=== PATIENT | female | born 1970 | race Caucasian/White ===

== ENCOUNTER 2021-07-26 08:00 | Outpatient (CLI) | payer OTHER ==
[2021-07-26 18:55] LABS: BASOPHILS # (AUTO) 0.1 10^3/uL (0.0-0.1); BASOPHILS % (AUTO) 0.9 %; EOSINOPHILS # (AUTO) 0.2 10^3/uL (0.0-0.7); EOSINOPHILS % (AUTO) 1.2 %; HCT - HEMATOCRIT 37.6 % (37.0-47.0); HGB - HEMOGLOBIN 12.1 g/dL (12.0-16.0); LYMPHOCYTES # (AUTO) 1.9 10^3/uL (1.5-3.5); LYMPHOCYTES % (AUTO) 14.4 %; MEAN CORPUSCULAR HGB CONC 32.2 g/dL (32.0-36.0); MEAN CORPUSCULAR VOLUME 99.5 fL (81.0-99.0); MEAN PLATELET VOLUME 9.7 fL (7.9-10.8); MONOCYTES # (AUTO) 0.9 10^3/uL (0.0-1.0); MONOCYTES % (AUTO) 6.7 %; NEUTROPHILS # (AUTO) 9.9 10^3/uL (1.5-6.6); NEUTROPHILS % (AUTO) 76.2 %; PLT - PLATELET COUNT 724 10^3/uL (130-450); RED BLOOD COUNT 3.78 10^6/uL (4.20-5.40); RED CELL DISTRIBUTION WIDTH 12.6 % (12.0-15.0)
[2021-07-26 19:27] LABS: ALBUMIN 3.9 g/dL (3.2-5.5); ALBUMIN/GLOBULIN RATIO 1.1 (1.0-2.2); BILIRUBIN,TOTAL 0.4 mg/dL (0.2-1.0); CALCIUM 9.3 mg/dL (8.5-10.3); CREATININE 0.9 mg/dL (0.4-1.0); POTASSIUM 3.9 mmol/L (3.5-5.0); TOTAL PROTEIN 7.6 g/dL (6.7-8.2)
[2021-07-26 20:27] LABS: THYROID STIMULATING HORMONE 0.7 uIU/mL (0.34-5.60)
== END 2021-07-26 23:59 | disposition home or self-care (01) ==
LOC: LAB.N 08:00
PROVIDERS: ATTEND Physician Assistant Medical
DX: R53.83 Other fatigue (principal); D51.8 Other vitamin B12 deficiency anemias; D50.9 Iron deficiency anemia, unspecified
CPT/HCPCS: 36415; 80053; 84443; 85025

== ENCOUNTER 2022-03-25 10:05 | Emergency (ER) | payer OTHER ==
[2022-03-25 10:14] VITALS: BP 140/91
--- NOTE | 2022-03-25 10:45 | XRAY Report ---
PROCEDURE: Chest 1 View X-Ray INDICATIONS: SOA TECHNIQUE: One view of the chest was acquired. COMPARISON: None. FINDINGS: Surgical changes and devices: GE junction region and left upper quadrant clips.. Lungs and pleura: No pleural effusions or pneumothorax. Lungs are clear. Mediastinum: Mediastinal contours appear normal. Heart size is normal. Bones and chest wall: No suspicious bony lesions. Overlying soft tissues appear unremarkable. IMPRESSION: No evidence acute pulmonary process. Reviewed by: Reggie Giron MD on 03/25/2022 10:43 AM [facility] Approved by: Reggie Giron MD on 03/25/2022 10:43 AM [facility] Station ID: [id number]
--- NOTE | 2022-03-25 12:40 | ED Physician Documentation ---
History of Present Illness - Stated complaint Stated Complaint: SOA - Chief complaint Chief Complaint: Resp - History obtained from History obtained from: Patient - Additonal information Additional information: The patient comes to the emergency department chief complaint of shortness of breath and cough. She states that she has been sick for about 3 days. No fevers or chills. She has no GI symptoms. She has some nasal congestion but not much productive cough. No other complaints at this time. No specific sick contacts. Review of Systems Ten Systems: 10 systems reviewed and negative Constitutional: reports: Reviewed and negative Eyes: reports: Reviewed and negative Ears: reports: Reviewed and negative Nose: reports: Reviewed and negative Throat: reports: Reviewed and negative Cardiac: reports: Reviewed and negative Respiratory: reports: Dyspnea, Cough GI: reports: Reviewed and negative : reports: Reviewed and negative Skin: reports: Reviewed and negative Musculoskeletal: reports: Reviewed and negative Neurologic: reports: Reviewed and negative Psychiatric: reports: Reviewed and negative Endocrine: reports: Reviewed and negative Immunocompromised: reports: Reviewed and negative PD PAST MEDICAL HISTORY - Past Medical History Past Medical History: Yes Cardiovascular: Other Respiratory: Pneumonia - Past Surgical History Past Surgical History: Yes General: Cholecystectomy, Gastric surgery Ortho: Other - Allergies Allergies/Adverse Reactions: Allergies Allergy/AdvReac Type Severity Reaction Status Date / Time No Known Drug Allergies Allergy Verified 03/25/22 10:14 - Social History Does the pt smoke?: No Smoking Status: Never smoker Does the pt drink ETOH?: No Does the pt have substance abuse?: No - Immunizations Immunizations are current?: Yes PD ED PE NORMAL - Vitals Vital signs reviewed: Yes - General General: Alert and oriented X 3, No acute distress, Well developed/nourished - HEENT HEENT: Atraumatic, PERRL, EOMI, Moist mucous membranes - Neck Neck: Supple, no meningeal sign - Cardiac Cardiac: RRR, No murmur, Strong equal pulses - Respiratory Respiratory: No respiratory distress, Clear bilaterally - Derm Derm: Normal color, Warm and dry, No rash - Extremities Extremities: No deformity - Neuro Neuro: Alert and oriented X 3, 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, Normal speech - Psych Psych: Normal mood, Normal affect Results - Vitals Vitals: Vital Signs - 24 hr 03/25/22 10:10 Temperature 36.7 C Heart Rate 107 H Respiratory 16 Rate Blood Pressure 140/91 H O2 Saturation 98 Oxygen O2 Source Room air - Labs Labs: Laboratory Tests 03/25/22 10:14 SARS-CoV-2 (PCR) DETECTED A - Rads (name of study) Chest x-ray Radiology: Final report received, See rad report (Negative) PD Medical Decision Making - ED course Complexity details: reviewed results, re-evaluated patient, considered differential, d/w patient ED course: I discussed with the patient that she is COVID-positive. Her chest x-ray is negative. We have discussed symptomatic management at home and the usual indications for return. Departure - Departure Disposition: Home, Self Care Clinical Impression: COVID-19 Condition: Stable Instructions: ED Viral Syndrome Comments: Your viral panel is positive for COVID. You should take ibuprofen 600 mg every 6 hours and Tylenol 650 mg every 4 hours, as needed for fever or other discomforts. Please drink plenty of fluids. There is no evidence of pneumonia on your x-ray at this point in time. You should be feeling better and anywhere from the next few days to a week or 2. You may follow-up with your primary doctor as needed. Once you are starting to noticeably feel better, just as with any other virus, you go back to your usual life.
== END 2022-03-25 12:56 | disposition home or self-care (01) ==
LOC: ED 10:05
DX: U07.1 COVID-19 (principal)
CPT/HCPCS: 99282; 99284

== ENCOUNTER 2022-06-20 21:05 | Emergency (ER) | payer OTHER ==
[2022-06-20 21:45] LABS: BASOPHILS # (AUTO) 0.1 10^3/uL (0.0-0.1); BASOPHILS % (AUTO) 0.9 %; EOSINOPHILS # (AUTO) 0.2 10^3/uL (0.0-0.7); EOSINOPHILS % (AUTO) 2.5 %; HCT - HEMATOCRIT 36.8 % (37.0-47.0); HGB - HEMOGLOBIN 11.7 g/dL (12.0-16.0); LYMPHOCYTES # (AUTO) 2.2 10^3/uL (1.5-3.5); LYMPHOCYTES % (AUTO) 27.5 %; MEAN CORPUSCULAR HEMOGLOBIN 30.2 pg (27.0-31.0); MEAN CORPUSCULAR HGB CONC 31.8 g/dL (32.0-36.0); MEAN CORPUSCULAR VOLUME 94.8 fL (81.0-99.0); MEAN PLATELET VOLUME 8.9 fL (7.9-10.8); MONOCYTES # (AUTO) 0.9 10^3/uL (0.0-1.0); MONOCYTES % (AUTO) 11.6 %; NEUTROPHILS # (AUTO) 4.5 10^3/uL (1.5-6.6); NEUTROPHILS % (AUTO) 57.1 %; PLT - PLATELET COUNT 359 10^3/uL (130-450); RED BLOOD COUNT 3.88 10^6/uL (4.20-5.40); RED CELL DISTRIBUTION WIDTH 13.6 % (12.0-15.0)
[2022-06-20 21:46] LABS: BILIRUBIN,URINE NEGATIVE (NEGATIVE); GLUCOSE, URINE (UA) NEGATIVE (NEGATIVE); KETONES,URINE (UA) 15 mg/dL (NEGATIVE); LEUKOCYTE ESTERASE, URINE TRACE (NEGATIVE); NITRITE,URINE NEGATIVE (NEGATIVE); OCCULT BLOOD,URINE TRACE-INTA (NEGATIVE); PROTEIN,URINE NEGATIVE (NEGATIVE); UROBILINOGEN,URINE 0.2 (NORMAL) E.U./dL (NORMAL)
[2022-06-20 21:47] LABS: CLARITY,URINE CLEAR (CLEAR)
[2022-06-20 21:55] LABS: BACTERIA,URINE Rare /HPF (None Seen); RBC,URINE 0-5 /HPF (0-5); SQUAMOUS EPITHELIAL CELL,UR FEW Squamous (<= Few); WBC,URINE 0-3 /HPF (0-5)
[2022-06-20 21:57] LABS: ALBUMIN 4.4 g/dL (3.2-5.5); ALBUMIN/GLOBULIN RATIO 1.3 (1.0-2.2); BILIRUBIN,TOTAL 0.9 mg/dL (0.2-1.0); CALCIUM 9.2 mg/dL (8.5-10.3); CREATININE 0.8 mg/dL (0.4-1.0); POTASSIUM 3.6 mmol/L (3.5-5.0); TOTAL PROTEIN 7.8 g/dL (6.7-8.2)
--- OUTSIDE RECORDS SUMMARY | 2022-06-20 21:57 | EXTERNAL MEDICAL SUMMARY RPT | Continuity of Care Document ---
:1970 Author Organization [facility] Address [address] [place] [address] Phone Care Team Providers Name Role Phone Unavailable Unavailable Unavailable Suhas Ferreira Pa-C Unavailable Unavailable Allergies No information. Encounters No information. Functional Status No information. Immunizations No information. Medications date description facility 2022-06-20 00:00 mupirocin All 2022-06-20 00:00 fluoxetine All 2022-06-20 00:00 bupropion hcl All 2022-06-20 00:00 spironolactone All 2022-06-20 00:00 hydromorphone All 2022-06-20 00:00 hydromorphone All 2022-06-20 00:00 dextroamphetamine-amphetamine All 2022-06-20 00:00 dextroamphetamine-amphetamine All 2022-06-20 00:00 lidocaine All 2022-06-20 00:00 hydrocodone-acetaminophen All 2022-06-20 00:00 hydromorphone All 2022-06-20 00:00 hydromorphone All 2022-06-20 00:00 hydroxyzine hcl All 2022-06-20 00:00 ibuprofen All 2022-06-20 00:00 mupirocin All 2022-06-20 00:00 hydroxyzine hcl All 2022-06-20 00:00 methocarbamol All 2022-06-20 00:00 naproxen All 2022-06-20 00:00 lidocaine All 2022-06-20 00:00 ibuprofen All 2022-06-20 00:00 methocarbamol All 2022-06-20 00:00 naproxen All 2022-06-20 00:00 spironolactone All 2022-06-20 00:00 diclofenac sodium All 2022-06-20 00:00 trazodone All 2022-06-20 00:00 dextroamphetamine-amphetamine All 2022-06-20 00:00 bupropion hcl All 2022-06-20 00:00 mupirocin All 2022-06-20 00:00 fluoxetine All 2022-06-20 00:00 gabapentin All 2022-06-20 00:00 spironolactone All 2022-06-20 00:00 pantoprazole All 2022-06-20 00:00 methocarbamol All 2022-06-20 00:00 spironolactone All 2022-06-20 00:00 gabapentin All 2022-06-20 00:00 pantoprazole All 2022-06-20 00:00 trazodone All 2022-06-20 00:00 dextroamphetamine-amphetamine All 2022-06-20 00:00 pantoprazole All 2022-06-20 00:00 hydroxyzine hcl All 2022-06-20 00:00 trazodone All 2022-06-20 00:00 fluoxetine All 2022-06-20 00:00 bupropion hcl All 2022-06-20 00:00 gabapentin All 2022-06-20 00:00 dextroamphetamine-amphetamine All 2022-06-20 00:00 dextroamphetamine-amphetamine All 2022-06-20 00:00 pantoprazole All 2022-06-20 00:00 pantoprazole All 2022-06-20 00:00 hydromorphone All 2022-06-20 00:00 hydromorphone All 2022-06-20 00:00 ibuprofen All 2022-06-20 00:00 diclofenac sodium All 2022-06-20 00:00 lidocaine All 2022-06-20 00:00 hydrocodone-acetaminophen All 2022-06-20 00:00 ibuprofen All 2022-06-20 00:00 naproxen All 2022-06-20 00:00 naproxen All 2022-06-20 00:00 gabapentin All 2022-06-20 00:00 dextroamphetamine-amphetamine All 2022-06-20 00:00 methocarbamol All 2022-06-20 00:00 hydrocodone-acetaminophen All 2022-06-20 00:00 diclofenac sodium All 2022-06-20 00:00 trazodone All 2022-06-20 00:00 hydrocodone-acetaminophen All 2022-06-20 00:00 dextroamphetamine-amphetamine All 2022-06-20 00:00 fluoxetine All 2022-06-20 00:00 hydromorphone All 2022-06-20 00:00 hydromorphone All 2022-06-20 00:00 mupirocin All 2022-06-20 00:00 diclofenac sodium All 2022-06-20 00:00 lidocaine All 2022-06-20 00:00 bupropion hcl All 2022-06-20 00:00 hydroxyzine hcl All Problems date description facility 2022-06-20 00:00 Left flank pain All 2022-06-20 00:00 Abdominal pain, other specified site; m ultiple sites All 2022-06-20 00:00 Unspecified abdominal pain All Procedures date description facility 2022-06-20 00:00 Visit Code Hold All Results/Labs test date author facility value unit interpret ation Result panel 1 (unknown) (no date) (unknown) All (no value) (units unknown ) (unknown) Result panel 2 (unknown) (no date) (unknown) All (no value) (units unknown ) (unknown) Result panel 3 (unknown) (no date) (unknown) All (no value) (units unknown ) (unknown) Result panel 4 (unknown) (no date) (unknown) All (no value) (units unknown ) (unknown) Result panel 5 (unknown) (no date) (unknown) All (no value) (units unknown ) (unknown) Result panel 6 (unknown) (no date) (unknown) All (no value) (units unknown ) (unknown) Result panel 7 (unknown) (no date) (unknown) All (no value) (units unknown ) (unknown) Result panel 8 (unknown) (no date) (unknown) All (no value) (units unknown ) (unknown) Result panel 9 (unknown) (no date) (unknown) All (no value) (units unknown ) (unknown) Result panel 10 (unknown) (no date) (unknown) All (no value) (units unknown ) (unknown) Result panel 11 (unknown) (no date) (unknown) All (no value) (units unknown ) (unknown) Result panel 12 (unknown) (no date) (unknown) All (no value) (units unknown ) (unknown) Result panel 13 (unknown) (no date) (unknown) All (no value) (units unknown ) (unknown) Social History date description facility 2022-06-20 00:00 Unknown if ever smoked All Vital Signs date measurement value units 2022-06-20 00:00 BMI 26.31 kg/m2 2022-06-20 00:00 BP_diastolic 95 mmHg 2022-06-20 00:00 BP_systolic 142 mmHg 2022-06-20 00:00 heart_rate 103 /min 2022-06-20 00:00 height_metric 160.02 cm 2022-06-20 00:00 height_standard 63 in 2022-06-20 00:00 respiration_rate 18 /min 2022-06-20 00:00 temperature_metric 36.94 C 2022-06-20 00:00 temperature_standard 98.5 F 2022-06-20 00:00 weight_metric 67.13 kg 2022-06-20 00:00 weight_standard 148 lb
[2022-06-20] MEDS ORDERED: SODIUM CHLORIDE 0.9% 1,000 ML IV STA (22:17)
[2022-06-20] MEDS ORDERED: iohexoL-300 100 ML VIAL ONE (22:23)
[2022-06-20 23:26] LABS: HCG UR QUAL NEGATIVE
[2022-06-21] MEDS ORDERED: iohexoL-300 100 ML VIAL IVP ONE (00:03)
--- NOTE | 2022-06-21 00:37 | CT Report ---
PROCEDURE: ABDOMEN/PELVIS W INDICATIONS: abd pain CONTRAST: Omni 300 100ml TECHNIQUE: After the administration of intravenous contrast, 5 mm thick sections acquired from the diaphragms to the symphysis. 5 mm thick coronal and sagittal reformats were acquired. For radiation dose reducti on, the following was used: automated exposure control, adjustment of mA and/or kV according to agapito ent size. COMPARISON: None. FINDINGS: Image quality: Excellent. Lung bases:There is mild dependent atelectasis. There is a partially visualized right lower lobe nod ule measuring up to 0.4 cm with partial internal calcification. Heart: Heart is normal in size. There is a moderate-sized hiatal hernia. ABDOMEN: Liver: No mass lesion. Gallbladder: Within normal limits without calcified gallstones. Biliary ducts: No biliary ductal dilatation. Pancreas: Unremarkable. Spleen: Normal in size. Adrenal Glands: No adrenal nodules. Kidneys and Ureters: No hydronephrosis. Stomach and Bowel: Postsurgical changes are demonstrated along the stomach consistent with prior gas tric bypass. There is a short segment jejunojejunal intussusception of the small bowel in the left mi d abdomen along patient's surgical sutures with mild associated patulous distention of an upstream se gment of small bowel. Small bowel is otherwise nondistended. Appendix is normal. Peritoneum: No abnormal intraperitoneal fluid. No free air. Ventral Wall: No hernia. Abdominal Nodes: No retroperitoneal or mesenteric adenopathy by size criteria. Vessels: Aorta and inferior vena cava are normal in size. PELVIS: Pelvic Organs: Unremarkable. Bladder: Unremarkable. Pelvic Nodes: No enlarged lymph nodes. Miscellaneous: No inguinal hernias. Bones: Visualized osseous structures demonstrate no suspicious lesions. IMPRESSION: 1. Short segment jejunojejunal intussusception within the left abdomen with associated mild upstream patulous distention of a segment small bowel. Small bowel otherwise appears nondistended without defi nite evidence of obstruction. 2. Moderate size hiatal hernia. Reviewed by: Jeff Urena MD on 06/21/2022 12:36 AM PDT Approved by: Jeff Urena MD on 06/21/2022 12:36 AM PDT Station ID: [id number]
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
[2022-06-21 01:46] VITALS: BP 124/77
== END 2022-06-21 01:35 | disposition home or self-care (01) ==
LOC: ED 21:05
DX: K56.1 Intussusception (principal)
CPT/HCPCS: 36415; 74177; 80053; 81001; 81025; 83690; 85025; 87086; 99283; 99284; Q9967; 81003

== ENCOUNTER 2022-10-29 18:03 | Emergency (ER) | payer OTHER ==
[2022-10-29 18:09] VITALS: BP 130/80
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
--- NOTE | 2022-10-29 19:15 | XRAY Report ---
PROCEDURE: Hand 3 View RT INDICATIONS: Trauma TECHNIQUE: 3 views of the hand(s) acquired. COMPARISON: None. FINDINGS: Bones: No fractures or dislocations. No suspicious bony lesions. Soft tissues: No suspicious soft tissue calcifications or masses. IMPRESSION: No acute bony abnormality. If pain persists with conservative management, consider repeat radiographs in 10-14 days or cross-sectional imaging. Reviewed by: Victor M Rogers MD on 10/29/2022 7:14 PM PDT Approved by: Victor M Rogers MD on 10/29/2022 7:14 PM PDT Station ID: [id number]
== END 2022-10-29 19:06 | disposition home or self-care (01) ==
LOC: ED 18:03
DX: S60.221A Contusion of right hand, initial encounter (principal); X58.XXXA Exposure to other specified factors, initial encounter
CPT/HCPCS: 99283

== ENCOUNTER 2022-12-22 10:14 | Emergency (ER) | payer OTHER ==
[2022-12-22 11:30] LABS: BASOPHILS # (AUTO) 0.1 10^3/uL (0.0-0.1); BASOPHILS % (AUTO) 1.2 %; EOSINOPHILS # (AUTO) 0.8 10^3/uL (0.0-0.7); EOSINOPHILS % (AUTO) 10.1 %; HCT - HEMATOCRIT 33.4 % (37.0-47.0); LYMPHOCYTES # (AUTO) 2.6 10^3/uL (1.5-3.5); LYMPHOCYTES % (AUTO) 34.6 %; MEAN CORPUSCULAR HEMOGLOBIN 26.3 pg (27.0-31.0); MEAN CORPUSCULAR HGB CONC 29.9 g/dL (32.0-36.0); MEAN CORPUSCULAR VOLUME 87.9 fL (81.0-99.0); MEAN PLATELET VOLUME 9.1 fL (7.9-10.8); MONOCYTES # (AUTO) 0.8 10^3/uL (0.0-1.0); MONOCYTES % (AUTO) 10.7 %; NEUTROPHILS # (AUTO) 3.2 10^3/uL (1.5-6.6); NEUTROPHILS % (AUTO) 43.1 %; PLT - PLATELET COUNT 374 10^3/uL (130-450); WHITE BLOOD COUNT 7.4 x10^3/uL (4.8-10.8)
[2022-12-22 11:45] LABS: ALBUMIN 4.2 g/dL (3.2-5.5); ALBUMIN/GLOBULIN RATIO 1.5 (1.0-2.2); BILIRUBIN,TOTAL 0.2 mg/dL (0.2-1.0); CALCIUM 9.4 mg/dL (8.5-10.3); CREATININE 0.7 mg/dL (0.6-1.3); POTASSIUM 3.6 mmol/L (3.5-4.5)
[2022-12-22] MEDS ORDERED: HYDROmorphone 1 MG/ML CARPUJECT IVP STA ×2 (12:39→13:49)
--- NOTE | 2022-12-22 12:49 | ED Physician Documentation ---
History of Present Illness - Stated complaint Stated Complaint: LOWER ABD PX, - Chief complaint Chief Complaint: Abd Pain - History obtained from History obtained from: Patient - History of Present Illness Timing: Today Pain level max: 9 Pain level now: 9 - Additonal information Additional information: Patient is a 52-year-old female presents to the emergency department with right lower quadrant abdominal pain. She states that it started while she was fishing this morning, she feels like she may have injured it while she was casting but it gradually worsened, she went home took her usual Vicodin, ibuprofen for her ankylosing spondylitis. She states the pain has continued to increase. No nausea or vomiting. No fevers. No chills. No diarrhea or constipation. She does have a remote history of gastric bypass. The pain is worse with movement, better with rest. She states she believes that she may have had a kidney stone at 1 point but she was not CT scanned. Denies any urinary symptoms currently. Review of Systems Constitutional: denies: Fever, Chills Respiratory: denies: Cough GI: denies: Nausea, Vomiting, Diarrhea : denies: Dysuria, Frequency, Hesitancy, Now EGA Skin: denies: Rash Musculoskeletal: denies: Neck pain, Back pain PD PAST MEDICAL HISTORY - Past Medical History Cardiovascular: Other Respiratory: Pneumonia - Past Surgical History Past Surgical History: Yes General: Cholecystectomy, Gastric surgery Ortho: Other - Present Medications Home Medications: Ambulatory Orders Medication Instructions Recorded Confirmed Dextroamphetamine/Amphetamine 10 mg PO DAILY 12/22/22 12/22/22 [Dextroamp-Amphetamine 5 mg Tab] Oxycodone HCl/Acetaminophen 1 - 2 each PO Q6H PRN #14 tablet 12/22/22 [Percocet 5-325 mg Tablet] MDD 6 tabs buPROPion [Wellbutrin Sr] 100 mg PO BID 12/22/22 12/22/22 traZODone [Desyrel] 50 mg PO ONCE 12/22/22 12/22/22 - Allergies Allergies/Adverse Reactions: Allergies Allergy/AdvReac Type Severity Reaction Status Date / Time No Known Drug Allergies Allergy Verified 12/22/22 10:29 - Social History Does the pt smoke?: No Smoking Status: Never smoker Does the pt drink ETOH?: No Does the pt have substance abuse?: No - Immunizations Immunizations are current?: Yes - POLST Patient has POLST: No PD ED PE NORMAL - Vitals Vital signs reviewed: Yes - General General: Alert and oriented X 3, Other (appears in pain). No: No acute distress, Well developed/nourished - HEENT HEENT: PERRL, Moist mucous membranes - Neck Neck: Supple, no meningeal sign - Cardiac Cardiac: RRR, Strong equal pulses - Respiratory Respiratory: No respiratory distress, Clear bilaterally - Abdomen Abdomen: Soft, Non distended, Other (Tender to palpation right lower quadrant near McBurney's point. No peritoneal signs.) - Back Back: No CVA TTP, No spinal TTP - Derm Derm: Warm and dry, No rash - Extremities Extremities: No edema, No calf tenderness / cord - Neuro Neuro: Alert and oriented X 3 - Psych Psych: Normal mood, Normal affect Results - Vitals Vitals: Vital Signs - 24 hr 12/22/22 12/22/22 12/22/22 10:26 12:00 14:10 Temperature 36.9 C Heart Rate 99 88 81 Respiratory 16 20 16 Rate Blood Pressure 130/87 H 145/92 H 123/88 H O2 Saturation 100 100 98 12/22/22 15:58 Temperature Heart Rate 81 Respiratory 14 Rate Blood Pressure 117/78 O2 Saturation 100 Oxygen O2 Source Room air - Labs Labs: Laboratory Tests 12/22/22 12/22/22 12/22/22 11:25 11:25 15:27 WBC 7.4 9.2 RBC 3.80 L 3.54 L Hgb 10.0 L 9.4 L Hct 33.4 L 31.1 L MCV 87.9 87.9 MCH 26.3 L 26.6 L MCHC 29.9 L 30.2 L RDW 15.0 14.8 Plt Count 374 360 MPV 9.1 9.5 Neut # (Auto) 3.2 4.3 Lymph # (Auto) 2.6 3.0 [place] # (Auto) 0.8 1.0 Eos # (Auto) 0.8 H 0.8 H Baso # (Auto) 0.1 0.1 Absolute Nucleated RBC 0.00 0.00 Nucleated RBC % 0.0 0.0 Sodium 138 Potassium 3.6 Chloride 106 Carbon Dioxide 26 Anion Gap 6.0 BUN 19 Creatinine 0.7 Estimated GFR (MDRD) 89 Glucose 98 Calcium 9.4 Total Bilirubin 0.2 AST 21 ALT 17 Alkaline Phosphatase 64 Total Protein 7.0 Albumin 4.2 Globulin 2.8 Albumin/Globulin Ratio 1.5 Lipase 12 - Rads (name of study) CT abdomen pelvis Relevant Findings:: Final report received, See rad report PD Medical Decision Making - ED course Complexity details: reviewed results, re-evaluated patient, considered differential, d/w patient, d/w family ED course: 52-year-old female presents to the emergency department with right-sided abdominal pain, this was after casting with a fishing pole. Gradually worsened since that time. Her CT scan shows a large hematoma in her right sided abdominal wall musculature. Pain improved in the emergency department with IV D ilaudid and oral oxycodone. Ice was applied. No significant drop in her hemoglobin on repeat CBC. She states she has chronic anemia. She is not on blood thinners. We will place her on pain medication for home and have her follow-up with her doctor for further care. Patient counseled regarding signs and symptoms for which I believe and urgent re-evaluation would be necessary. Patient with good understanding of and agreement to plan and is comfortable going home at this time This document was made in part using voice recognition software. While efforts are made to proofread this document, sound alike and grammatical errors may occur. Departure - Departure Disposition: 01 Home, Self Care Clinical Impression: Abdominal wall hematoma Qualifiers: Encounter type: initial encounter Qualified Code(s): S30.1XXA - Contusion of abdominal wall, initial encounter Anemia Qualifiers: Anemia type: unspecified type Qualified Code(s): D64.9 - Anemia, unspecified Condition: Good Instructions: ED Hematoma Follow-Up: your,doctor in 3 days [Other] Prescriptions: Oxycodone HCl/Acetaminophen [Percocet 5-325 mg Tablet] 1 - 2 each PO Q6H PRN #14 tablet MDD 6 tabs PRN Reason: pain Comments: Your prescriptions were sent to [facility] in [place]. You do have a right- sided abdominal wall hematoma, this appears to be approximately 10 x 5 x 8cm. Most of these will resolve on their own. I would recommend applying ice to the area today as this should decrease the bleeding. Adding slight pressure should help to stop the bleeding as well. Please return if you have increased swelling, increased pain, lightheadedness, dizziness or any other new or worrisome symptoms. [facility] [place] Your blood count should be rechecked by your doctor in 2 to 3 days. Your hemoglobin went from 10 to 9.4 today. I am prescribing a short course of narcotic pain medication for you. These are potentially dangerous and addictive medications that should be used carefully. These medications may constipate you. Take an kgkm-ivw-wsufeat stool softener (docusate) twice daily with plenty of water while taking these medications. If you go 24 hours without a bowel movement, take [id number] miralax, per package instructions. Do not drink or drive while taking these medications. If you received narcotic or sedating medications while in the emergency department, do not drive for 24 hours. Store this medication in a safe, secure place and out of reach of children. It is a violation of federal law to give or sell this medication to another person or to use in a manner other than prescribed. The ED will not refill narcotic prescriptions, including prescriptions lost or stolen. To dispose of unwanted medications: 1. [facility] [address] [facility] in [place] has a medication drop box. They accept prescription medications (in pill form) Friday through Friday 9:00 a.m. to 5:00 p.m. 2. The [facility] accepts prescription medications (in pill form only) for disposal year round. Call for more information. 3. Contact the [facility] for the next [facility] sponsored prescription drug collection event. , [phone], or [phone]; Forms: PCP List Discharge Date/Time: 12/22/22 16:13
--- NOTE | 2022-12-22 14:52 | CT Report ---
PROCEDURE: ABDOMEN/PELVIS W INDICATIONS: RLQ abd pain CONTRAST: 100mL Opti 320 TECHNIQUE: After the administration of intravenous contrast, 5 mm thick sections acquired from the diaphragms to the symphysis. 5 mm thick coronal and sagittal reformats were acquired. For radiation dose reducti on, the following was used: automated exposure control, adjustment of mA and/or kV according to agapito ent size. COMPARISON: 06/20/2022 FINDINGS: Image quality: Excellent. Lung bases and heart: Unremarkable. Liver: No solid mass. Gallbladder and biliary tree: Status post cholecystectomy. No biliary ductal dilatation. Spleen: No splenomegaly. Pancreas: No pancreatic ductal dilation. Adrenals: No adrenal nodule. Kidneys and ureters: No hydronephrosis. No renal cystic lesion which requires follow up. No solid mas s. Nonobstructing 2 mm calculus within the left interpolar kidney anteriorly. Nonobstructing right mccarty perior pole renal calculus measuring 2 mm. Bowel and peritoneum: Moderate hiatal hernia, as before. No bowel distension. No pathologic free flui d. Appendix not seen. No evidence of appendicitis. Lymph nodes: No central or retroperitoneal adenopathy. Vessels: No infrarenal aortic aneurysm. PELVIS Reproductive organs: Unremarkable. Bladder: No abnormal wall thickening, accounting for underdistension. Pelvic lymph nodes: No pelvic adenopathy by size criteria. Bones: No aggressive osseous abnormality. Other: No significant ventral or inguinal hernia. IMPRESSION: 1. No acute process. 2. Appendix not seen. No evidence of appendicitis. 3. Nonobstructing small bilateral renal calculi. 4. Hiatal hernia. Reviewed by: Leslie Roberts MD on 12/22/2022 2:51 PM PDT Approved by: Leslie Roberts MD on 12/22/2022 2:51 PM PDT Station ID: [id number]
[2022-12-22] MEDS ORDERED: IOVERSOL 320 100 ML VIAL IVP ONE (15:06)
[2022-12-22] MEDS ORDERED: oxyCODONE 5 MG TABLET PO STA (15:33)
[2022-12-22 15:41] LABS: BASOPHILS # (AUTO) 0.1 10^3/uL (0.0-0.1); BASOPHILS % (AUTO) 1.1 %; EOSINOPHILS # (AUTO) 0.8 10^3/uL (0.0-0.7); EOSINOPHILS % (AUTO) 8.6 %; HCT - HEMATOCRIT 31.1 % (37.0-47.0); HGB - HEMOGLOBIN 9.4 g/dL (12.0-16.0); LYMPHOCYTES % (AUTO) 32.3 %; MEAN CORPUSCULAR HEMOGLOBIN 26.6 pg (27.0-31.0); MEAN CORPUSCULAR HGB CONC 30.2 g/dL (32.0-36.0); MEAN CORPUSCULAR VOLUME 87.9 fL (81.0-99.0); MEAN PLATELET VOLUME 9.5 fL (7.9-10.8); MONOCYTES % (AUTO) 10.5 %; NEUTROPHILS # (AUTO) 4.3 10^3/uL (1.5-6.6); NEUTROPHILS % (AUTO) 47.2 %; PLT - PLATELET COUNT 360 10^3/uL (130-450); RED BLOOD COUNT 3.54 10^6/uL (4.20-5.40); RED CELL DISTRIBUTION WIDTH 14.8 % (12.0-15.0); WHITE BLOOD COUNT 9.2 x10^3/uL (4.8-10.8)
[2022-12-22 16:06] VITALS: BP 117/78; O2SAT 100
== END 2022-12-22 16:13 | disposition home or self-care (01) ==
LOC: ED 10:14
DX: S30.1XXA Contusion of abdominal wall, initial encounter (principal); X50.0XXA Overexertion from strenuous movement or load, initial encounter; Y93.59 Activity, other involving other sports and athletics played individually; D64.9 Anemia, unspecified
CPT/HCPCS: 36415; 74177; 80053; 83690; 85025; 96374; 96376; 99284; A9270; J1170; Q9967

== ENCOUNTER 2023-12-31 19:17 | Emergency (ER) | payer OTHER ==
[2023-12-31 21:16] LABS: BASOPHILS # (AUTO) 0.1 10^3/uL (0.0-0.1); EOSINOPHILS # (AUTO) 0.5 10^3/uL (0.0-0.7); EOSINOPHILS % (AUTO) 5.4 %; HCT - HEMATOCRIT 36.4 % (37.0-47.0); HGB - HEMOGLOBIN 11.7 g/dL (12.0-16.0); LYMPHOCYTES # (AUTO) 2.3 10^3/uL (1.5-3.5); LYMPHOCYTES % (AUTO) 27.3 %; MEAN CORPUSCULAR HGB CONC 32.1 g/dL (32.0-36.0); MEAN CORPUSCULAR VOLUME 96.3 fL (81.0-99.0); MEAN PLATELET VOLUME 9.3 fL (7.9-10.8); MONOCYTES # (AUTO) 0.6 10^3/uL (0.0-1.0); MONOCYTES % (AUTO) 7.1 %; NEUTROPHILS # (AUTO) 4.9 10^3/uL (1.5-6.6); NEUTROPHILS % (AUTO) 58.8 %; PLT - PLATELET COUNT 365 10^3/uL (130-450); RED BLOOD COUNT 3.78 10^6/uL (4.20-5.40); RED CELL DISTRIBUTION WIDTH 12.3 % (12.0-15.0); WHITE BLOOD COUNT 8.3 x10^3/uL (4.8-10.8)
[2023-12-31] MEDS ORDERED: iohexoL-300 100 ML VIAL ONE (21:19)
[2023-12-31 21:21] LABS: ALBUMIN 4.2 g/dL (3.2-5.5); BILIRUBIN,TOTAL 0.2 mg/dL (0.2-1.0); CALCIUM 9.1 mg/dL (8.5-10.3); CREATININE 0.9 mg/dL (0.6-1.3); TOTAL PROTEIN 6.3 g/dL (6.4-8.9)
--- NOTE | 2023-12-31 21:21 | ED Physician Documentation ---
History of Present Illness - Stated complaint Stated Complaint: BLOOD IN STOOL - Chief complaint Chief Complaint: Abd Pain - History obtained from History obtained from: Patient - Additonal information Additional information: 53-year-old woman with history of PTSD, past surgical history of cholecystectomy and gastric surgery, presents with left-sided abdominal pain and blood in the stool today. She states that she has been passing strange material in her stools that she believes are liver flexor tapeworms for the past 24 days and has been doing a natural parasite detox treatment with homeopathic medications including [employer] grape extract and charcoal. denies nausea/vomiting/diarrhea. Patient brought stool samples that she passed today. denies fever. denies travel outside [facility]. PD PAST MEDICAL HISTORY - Past Medical History Past Medical History: Yes Cardiovascular: Other Respiratory: Pneumonia Psych: Post traumatic stress disorder - Past Surgical History Past Surgical History: Yes General: Cholecystectomy, Gastric surgery Ortho: Other - Present Medications Home Medications: Ambulatory Orders Medication Instructions Recorded Confirmed Dextroamphetamine/Amphetamine 10 mg PO DAILY 12/22/22 12/22/22 [Dextroamp-Amphetamine 5 mg Tab] Oxycodone HCl/Acetaminophen 1 - 2 each PO Q6H PRN #14 tablet 12/22/22 [Percocet 5-325 mg Tablet] MDD 6 tabs buPROPion [Wellbutrin Sr] 100 mg PO BID 12/22/22 12/22/22 traZODone [Desyrel] 50 mg PO ONCE 12/22/22 12/22/22 - Allergies Allergies/Adverse Reactions: Allergies Allergy/AdvReac Type Severity Reaction Status Date / Time No Known Drug Allergies Allergy Verified 12/31/23 19:21 - Social History Does the pt smoke?: No Smoking Status: Former smoker Does the pt drink ETOH?: No Does the pt have substance abuse?: No - Immunizations Immunizations are current?: Yes - POLST Patient has POLST: No PD ED PE NORMAL - Vitals Vital signs reviewed: Yes - General General: Alert and oriented X 3, No acute distress, Well developed/nourished - HEENT HEENT: Atraumatic, PERRL, EOMI - Neck Neck: Supple, no meningeal sign - Cardiac Cardiac: RRR - Respiratory Respiratory: No respiratory distress, Clear bilaterally - Abdomen Abdomen: Non tender, Non distended - Derm Derm: Normal color, Warm and dry - Extremities Extremities: No deformity - Neuro Neuro: Alert and oriented X 3, No motor deficit, No sensory deficit Results - Vitals Vitals: Vital Signs - 24 hr 12/31/23 12/31/23 19:21 21:27 Temperature 36.5 C Heart Rate 78 68 Respiratory 16 16 Rate Blood Pressure 135/90 H 112/79 O2 Saturation 99 98 Oxygen O2 Source Room air - Labs Labs: Laboratory Tests 12/31/23 12/31/23 12/31/23 21:00 21:00 21:04 WBC 8.3 RBC 3.78 L Hgb 11.7 L Hct 36.4 L MCV 96.3 MCH 31.0 MCHC 32.1 RDW 12.3 Plt Count 365 MPV 9.3 Neut # (Auto) 4.9 Lymph # (Auto) 2.3 [place] # (Auto) 0.6 Eos # (Auto) 0.5 Baso # (Auto) 0.1 Absolute Nucleated RBC 0.00 Nucleated RBC % 0.0 Sodium Potassium Chloride Carbon Dioxide Anion Gap BUN Creatinine Estimated GFR (MDRD) Glucose Calcium Total Bilirubin AST ALT Alkaline Phosphatase Total Protein Albumin Globulin Albumin/Globulin Ratio Lipase Urine Color YELLOW Urine Clarity CLEAR Urine pH 6.0 Ur Specific [place] 1.020 Urine Protein NEGATIVE Urine Glucose (UA) 500 H Urine Ketones NEGATIVE Urine Occult Blood NEGATIVE Urine Nitrite NEGATIVE Urine Bilirubin NEGATIVE Urine Urobilinogen 0.2 (NORMAL) Ur Leukocyte Esterase TRACE H Urine RBC None Seen Urine WBC 0-3 Ur Squamous Epith Cells MOD Squamous H Urine Bacteria Rare Ur Microscopic Review INDICATED Urine Culture Comments NOT INDICATED Stl Occult Blood (IFOB) NEGATIVE 12/31/23 21:04 WBC RBC Hgb Hct MCV MCH MCHC RDW Plt Count MPV Neut # (Auto) Lymph # (Auto) [place] # (Auto) Eos # (Auto) Baso # (Auto) Absolute Nucleated RBC Nucleated RBC % Sodium 136 Potassium 4.0 Chloride 102 Carbon Dioxide 27 Anion Gap 7.0 BUN 26 H Creatinine 0.9 Estimated GFR (MDRD) 66 L Glucose 266 H Calcium 9.1 Total Bilirubin 0.2 AST 12 ALT 18 Alkaline Phosphatase 56 Total Protein 6.3 L Albumin 4.2 Globulin 2.1 Albumin/Globulin Ratio 2.0 Lipase 18 Urine Color Urine Clarity Urine pH Ur Specific [place] Urine Protein Urine Glucose (UA) Urine Ketones Urine Occult Blood Urine Nitrite Urine Bilirubin Urine Urobilinogen Ur Leukocyte Esterase Urine RBC Urine WBC Ur Squamous Epith Cells Urine Bacteria Ur Microscopic Review Urine Culture Comments Stl Occult Blood (IFOB) PD Medical Decision Making - ED course ED course: 53yF p/w passage of foreign material in her stool that she believes are flukes /tapeworms as well as abdominal pain/blood in stool. Plan to enact cbc, abdominal panel, ct a/p, 1 L IVF and reevaluate. stool studies sent. Patient is feeling better status post fluids. Her CT showed nothing acute. Discussed with her about her kidney stones. The fecal occult blood test was negative and she has only some mild anemia with hemoglobin of 11.7. She is hyperglycemic with glucose of 266 without previous history of diabetes. I told her to follow-up with her doctor in regards to this as well as for results of the stool ova and parasite studies. Return precautions given. Departure - Departure Disposition: 01 Home, Self Care Clinical Impression: Anemia, Hyperglycemia Condition: Stable Instructions: Hyperglycemia, Anemia Comments: You were seen in the emergency department for medical evaluation. Your CT of the abdomen and pelvis was normal. You do have kidney stones in both kidneys but You do not need to do anything specifically about this. If you start to have pain then you should tell your doctor that you were diagnosed with kidney stones. You do have high blood sugar on lab work with glucose of 266 on blood testing. You should follow-up with your doctor for evaluation of possible diabetes. You have very mild anemia with hemoglobin of 11.7. This is not in a dangerous range and can be worked up further by your doctor. We did send the stool samples that you gave us off for evaluation of ova and parasites and the results are available on your patient health portal and 3 to 7 days. Please follow-up with your primary care provider and return to the emergency department if you have any new or worsening symptoms or other concerns. Forms: PCP List
[2023-12-31] MEDS: SODIUM CHLORIDE 0.9% 1,000 ML IV STA (21:33)
[2023-12-31 21:43] LABS: BILIRUBIN,URINE NEGATIVE (NEGATIVE); GLUCOSE, URINE (UA) 500 mg/dL (NEGATIVE); KETONES,URINE (UA) NEGATIVE (NEGATIVE); LEUKOCYTE ESTERASE, URINE TRACE (NEGATIVE); NITRITE,URINE NEGATIVE (NEGATIVE); OCCULT BLOOD,URINE NEGATIVE (NEGATIVE); PROTEIN,URINE NEGATIVE (NEGATIVE); UROBILINOGEN,URINE 0.2 (NORMAL) E.U./dL (NORMAL)
[2023-12-31] MEDS: iohexoL-300 100 ML VIAL IVP ONE (21:46)
[2023-12-31 21:47] LABS: FECAL OCCULT BLOOD (FIT) NEGATIVE (NEGATIVE)
--- NOTE | 2023-12-31 21:56 | CT Report ---
PROCEDURE: Abdomen/Pelvis W INDICATIONS: blood in stool, poop foreign material vs parasites CONTRAST: OMNI 300, 100mls TECHNIQUE: After the administration of intravenous contrast, a CT scan of the abdomen and pelvis was performed. Images were recorded and evaluated at appropriate window settings. Reformats: coronal and sagittal. F or radiation dose reduction, the following was used: automated exposure control, adjustment of mA and /or kV according to patient size. COMPARISON: 12/22/2022 FINDINGS: Image quality: Diagnostic. Lower chest: 4 mm solid nodule in the left lower lobe is stable since 2022, therefore statistically b enign. Moderate hiatal hernia. Liver: No solid mass. Gallbladder: Surgically absent. Biliary tree: No intrahepatic or extrahepatic dilation, accounting for age. Spleen: No splenomegaly. Pancreas: No pancreatic ductal dilation. Adrenals: No adrenal nodule. Kidneys and ureters: No hydronephrosis. No renal cystic lesion which requires follow up. No solid mas s. Small moderate burden of punctate, nonobstructing bilateral nephrolithiasis. Stomach, bowel and peritoneum: No gastric or small bowel dilation. No abnormal wall thickening. No pa thologic free fluid. Normal appendix. Gastric bypass. Lymph nodes: No central or retroperitoneal adenopathy. Vessels: No infrarenal aortic aneurysm. Patent portal vein. PELVIS Reproductive organs: Unremarkable. Bladder: No abnormal wall thickening, accounting for underdistention. Pelvic lymph nodes: No pelvic adenopathy by size criteria. Bones: No aggressive osseous abnormality. 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 Right SI arthrodesis. Other: No significant ventral or inguinal hernia. IMPRESSION: No colitis or radiopaque foreign body. Small burden of bilateral, nonobstructing renal stones. Reviewed by: Peter Lockwood MD on 12/31/2023 9:54 PM PDT Approved by: Peter Lockwood MD on 12/31/2023 9:54 PM PDT Station ID: [id number]
[2023-12-31 22:00] LABS: CLARITY,URINE CLEAR (CLEAR)
[2023-12-31 22:01] LABS: BACTERIA,URINE Rare /HPF (None Seen); RBC,URINE None Seen /HPF (0-5); SQUAMOUS EPITHELIAL CELL,UR MOD Squamous (<= Few); WBC,URINE 0-3 /HPF (0-5)
[2023-12-31 22:26] VITALS: O2SAT 98
[2023-12-31 23:08] VITALS: BP 122/68
== END 2023-12-31 22:59 | disposition home or self-care (01) ==
LOC: ED 19:17
DX: D64.9 Anemia, unspecified (principal); R73.9 Hyperglycemia, unspecified; Z87.891 Personal history of nicotine dependence; N20.0 Calculus of kidney
CPT/HCPCS: 36415; 74177; 80053; 81001; 82274; 83690; 85025; 87177; 87209; 96360; 99284; Q9967; 81003; 87086